=== PATIENT | male | born 1995 | race Two or more races ===

== ENCOUNTER 2019-05-14 07:12 | Emergency (ER) | payer SELFPAY ==
[~2019-05-14] VITALS: Ht 165.1 cm; Wt 68.0 kg
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
[2019-05-14] MEDS ORDERED: cefTRIAXone IV Push 1 GM VIAL. IVP ONE (07:30)
[2019-05-14] MEDS ORDERED: IV NORMAL SALINE 1000ML BAG 1,000 ML IV ONE ×2 (07:30)
[2019-05-14] MEDS: HYDROmorphone 2 MG/ML VIAL IV PRN ×3 (07:37→09:07)
[2019-05-14 07:45] LABS: BASO % 0 % (0-3); EOS # 0.1 x10^3/uL (0.0-0.7); EOS % 1 % (0-3); HEMATOCRIT 30.3 % (39.0-53.0); HEMOGLOBIN 10.3 g/dL (13.0-17.5); LYMPH # 1.4 x10^3/uL (1.0-4.8); LYMPH % 11 % (24-48); MEAN CORPUSCULAR HEMOGLOBIN 30 pg (25-35); MEAN CORPUSCULAR HGB CONC 34 g/dL (31-37); MEAN CORPUSCULAR VOLUME 89 fL (79-100); MONO # 1.6 x10^3/uL (0.0-1.1); MONO % 12 % (0-9); NEUT # 9.9 x10^3/uL (1.8-7.7); NEUT % 76 % (31-73); PLATELET COUNT 293 x10^3/uL (140-400); RED BLOOD COUNT 3.41 x10^6/uL (4.30-5.70); RED CELL DISTRIBUTION WIDTH 13.6 % (11.5-14.5)
[2019-05-14 07:54] LABS: BILIRUBIN,URINE NEGATIVE (NEG); CLARITY,URINE CLEAR; COLOR,URINE YELLOW; NITRITE,URINE NEGATIVE (NEG); PROTEIN,URINE NEGATIVE (NEG-TRACE)
[2019-05-14 07:54] LABS: CALCIUM 8.7 mg/dL (8.5-10.1); CREATININE 0.7 mg/dL (0.7-1.3); POTASSIUM 3.4 mmol/L (3.5-5.1)
[2019-05-14 08:00] LABS: ALBUMIN 2.7 g/dL (3.4-5.0); ALBUMIN/GLOBULIN RATIO 0.7 (1.0-1.7); TOTAL BILIRUBIN 0.8 mg/dL (0.2-1.0); TOTAL PROTEIN 6.7 g/dL (6.4-8.2)
[2019-05-14 08:04] LABS: BACTERIA,URINE FEW /HPF (0-FEW); RBC,URINE 0 /HPF (0-2); SQUAMOUS EPITHELIAL CELL,UR OCC /LPF
[2019-05-14] MEDS ORDERED: CONTRAST GIVEN. MC PRN (08:15)
[2019-05-14] MEDS ORDERED: IOHEXOL 300 MG/ML 100ML VIAL. IV ONE (08:15)
[2019-05-14 08:46] LABS: % BANDS 11 % (0-9); % EOS 2 % (0-5); % LYMPHS 15 % (24-48); % METAS 3 % (0-0); % MONOS 6 % (0-10); % MYELOS 4 % (0-0); % SEGS 59 % (35-66)
[2019-05-14 08:47] LABS: PLT ESTIMATE ADEQUATE (ADEQUATE); POLYCHROMASIA SLIGHT
[2019-05-14 08:48] LABS: ANISOCYTOSIS SLIGHT; TOXIC VACUOLATION SLIGHT
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
[2019-05-14 09:39] VITALS: BP 166/83
== END 2019-05-14 10:19 | disposition short-term general hospital (02) ==
LOC: ER 07:12
DX: G89.18 Other acute postprocedural pain (principal); R10.9 Unspecified abdominal pain; W34.09XD Accidental discharge from other specified firearms, subsequent encounter; Z87.891 Personal history of nicotine dependence
CPT/HCPCS: 36415; 71260; 74177; 80053; 81001; 83605; 85007; 85025; 87040; 96374; 96375; 96376; 99285; J0696; J1170; J7030; Q9967